=== PATIENT | male | born 1940 | race Hispanic/Latino ===

== ENCOUNTER → 2025-08-31 13:20 | Outpatient (CLI) | payer OTHER, SELFPAY ==
--- NOTE | 2025-08-31 13:26 | DI.US.S_ITS ---
PROCEDURE: US ARTERIAL DUPLEX LE BI
== END ==
PROVIDERS: PCP Registered Nurse; Referring Provider Internal Medicine Cardiovascular Disease; Visit Provider Internal Medicine Cardiovascular Disease
DX: I08.0 Rheumatic disorders of both mitral and aortic valves (principal); I48.0 Paroxysmal atrial fibrillation; I73.9 Peripheral vascular disease, unspecified; I77.810 Thoracic aortic ectasia; I77.89 Other specified disorders of arteries and arterioles
CPT/HCPCS: 93306; 93925